=== PATIENT | male | born 1970 | race Caucasian/White ===

== ENCOUNTER 2020-09-02 15:11 | Emergency (ER) | payer OTHER ==
[2020-09-02] MEDS ORDERED: NAPROXEN500 MG PO (19:42)
[2020-09-02] MEDS ORDERED: BACLOFEN 10MG T10 MG PO (19:42)
== END 2020-09-02 20:03 | disposition home or self-care (01) ==
LOC: FER 15:11
DX: S09.90XA Unspecified injury of head, initial encounter (principal); S16.1XXA Strain of muscle, fascia and tendon at neck level, initial encounter; I10 Essential (primary) hypertension; W19.XXXA Unspecified fall, initial encounter
CPT/HCPCS: 70450; 72050; 72125; 96372; J1100; J1885